=== PATIENT | male | born 1950 | race Caucasian/White ===

== ENCOUNTER 2018-05-16 13:20 | Emergency (ER) | payer MEDICARE, BC ==
[~2018-05-16] VITALS: Ht 182.9 cm; Wt 104.5 kg
[2018-05-16 13:28] VITALS: Ht 182.9 cm; Wt 104.5 kg
[2018-05-16 16:50] VITALS: BP 150/64
== END 2018-05-16 17:06 | disposition home or self-care (01) ==
LOC: D.ER 13:20
DX: E87.8 Other disorders of electrolyte and fluid balance, not elsewhere classified (principal)